=== PATIENT | male | born 1970 | race Two or more races ===

== ENCOUNTER 2018-10-11 07:28 | Observation (INO) | payer OTHER ==
--- NOTE | 2018-10-11 07:35 | PDOC ---
Attending Attestation - Resident Resident Name: Marie Tinoco - ED Attending Attestation I have performed the following: I have examined & evaluated the patient, The case was reviewed & discussed with the resident, I agree w/resident's findings & plan, Exceptions are as noted - HPI HPI: 10/11/18 09:05 Mr Cheney is a 47 yo M h/o HTN, HLD, NIDDMII who was BIBEMS for chest pain and dizziness. He awoke this morning with sudden onset of sharp, nonradiating, constant left sided chest pain associated with dizziness. Patient reports no alleviating or exacerbating factors with a severity of 5/10. Dizziness began yesterday, he noted difficulty walking and standing due to dizziness No SOB, nausea, vomiting, diaphoresis Patient was given ASA 325mg and Nitro on the field with moderate relief of symptoms. - Physicial Exam PE: 10/11/18 08:27 GENERAL: The patient is in no acute distress. LUNGS: Breath sounds equal, clear to auscultation bilaterally. No wheezes, and no crackles. HEART:Regular rate and rhythm, normal S1 and S2 without murmur, rub or gallop. ABDOMEN: Soft, nontender, normoactive bowel sounds. No guarding, no rebound. No masses palpable. EXTREMITIES: Normal range of motion, no edema. NEUROLOGICAL: Cranial nerves II through XII grossly intact. Normal speech. No focal neurological deficits. MUSCULOSKELETAL: Back non-tender to palpation, no CVA tenderness SKIN: Warm, Dry, normal turgor, no rashes or lesions noted. 10/11/18 09:06 - Medical Decision Making 10/11/18 08:59 EKG - Twelve-lead EKG was performed and reviewed by me. There is normal sinus rhythm with a bradycardic rate. The axis is normal. The intervals are normal. There are no ST or T wave abnormalities. Impression: Normal twelve-lead EKG Laboratory Tests 10/11/18 10/11/18 10/11/18 07:40 07:40 07:40 WBC 5.9 Hgb 10.7 L Hct 35.6 Plt Count 279 INR 0.92 BUN 13 Creatinine 0.8 Creatine Kinase 291 Troponin I 0.03 TSH 1.08 Urine Ketones Urine Blood Urine Nitrite Ur Leukocyte Esterase 10/11/18 08:15 WBC Hgb Hct Plt Count INR BUN Creatinine Creatine Kinase Troponin I TSH Urine Ketones Negative Urine Blood Negative Urine Nitrite Negative Ur Leukocyte Esterase Negative 10/11/18 09:03 HGB noted Pt reports a h/o iron deficiency He has not been compliant with iron supplementation Pt continues to be dizzy Will place on observation to PMD
--- NOTE | 2018-10-11 08:04 | PDOC ---
History of Present Illness - General Chief Complaint: Chest Pain Stated Complaint: CHEST PAIN Time Seen by Provider: 10/11/18 07:36 History Source: Patient Exam Limitations: No Limitations - History of Present Illness Initial Comments: 10/11/18 07:36 Patient is a 47 year old male with a PMHx of HTN, HLD, NIDDMII, Iron Deficiency anemia who was BIBEMS for chest pain and dizziness. According to patient, he woke up this morning with sudden onset of sharp, nonradiating, constant left sided chest pain associated with dizziness. Patient reports no alleviating or exacerbating factors with a severity of 5/10. Denies taking any medications for the pain. Patient denies ever having similar symptoms in the past. According to patient, he started experiencing worsening dizziness yesterday whenever he would walk, stand up, or move his head to the sides but denies any tinnitus, nausea, or the feeling as if the room is spinning. Patient reports he drank a significant amount of alcohol on and the symptoms of dizziness started since then but not as severe as yesterday. Otherwise, patient denies any shortness of breath, palpitations, abdominal pain , headaches, acute vision changes, urinary or bowel problems, melena, hematochezia, hematemesis, hemoptysis. Patient was given ASA 325mg and Nitro on the field, as per EMS with moderate relief of symptoms. PCP: Dr. Purvis PMHx: HTN HLD NIDDMII Iron Deficiency anemia PSHx: Denies Social Hx: Denies drug use Denies smoking Alcohol on occasions only Family Hx: Brother- from Heart problems Mother and Father- denies Allergies: Denies Past History - Past Medical History Allergies/Adverse Reactions: Allergies Allergy/AdvReac Type Severity Reaction Status Date / Time No Known Allergies Allergy Verified 10/11/18 07:36 Home Medications: Ambulatory Orders Amlodipine Besylate [Norvasc -] 10 mg PO DAILY 10/11/18 Aspirin 81 mg PO DAILY 10/11/18 Atorvastatin Calcium [Lipitor] 20 mg PO HS 10/11/18 Lisinopril [Prinivil] 20 mg PO DAILY 10/11/18 metFORMIN HCL [Metformin HCl] 500 mg PO DAILY 10/11/18 Review of Systems - Review of Systems Able to Perform ROS?: Yes Constitutional: No: Chills, Diaphoresis, Fever, Malaise, Night Sweats HEENTM: No: Eye Pain, Nose Congestion, Throat Pain Respiratory: No: Cough, Orthopnea, Shortness of Breath, SOB with Exertion, SOB at Rest, Wheezing, Productive cough, Hemoptysis Cardiac (ROS): Yes: Chest Pain, Lightheadedness. No: Edema, Palpitations, Syncope, Chest Tightness ABD/GI: No: Constipated, Diarrhea, Nausea, Rectal Bleeding, Vomiting, Abdominal cramping : No: Burning, Dysuria, Discharge, Frequency, Flank Pain, Hematuria Musculoskeletal: No: Back Pain, Muscle Pain Integumentary: No: Bruising, Dryness, Erythema, Flushing Neurological: Yes: Dizziness. No: Headache, Numbness, Seizure Hematologic/Lymphatic: No: Anemia, Blood Clots *Physical Exam - Vital Signs Last Vital Signs Temp Pulse Resp BP Pulse Ox 98.3 F 74 16 104/86 100 10/11/18 07:36 10/11/18 10:23 10/11/18 10:23 10/11/18 10:23 10/11/18 10:23 - Physical Exam General Appearance: Yes: Other (Awake, alert, oriented x3, in no acute distress ) HEENT: positive: EOMI, SERGIO, Normal ENT Inspection, Normal Voice, Pharynx Normal , Other ((-) nystagmus ). negative: Rhinorrhea, Sinus Tenderness Neck: positive: Trachea midline. negative: Carotid bruit, Decreased range of motion, Lymphadenopathy (R), Lymphadenopathy (L) Respiratory/Chest: positive: Lungs Clear, Normal Breath Sounds. negative: Respiratory Distress, Accessory Muscle Use, Crackles, Rhonchi, Wheezing Cardiovascular: positive: Regular Rhythm, S1, S2, Bradycardia. negative: Edema , JVD, Murmur Gastrointestinal/Abdominal: positive: Other (Soft, nontender, nondistended, normoactive bowel sounds, no organomegaly, no rebound or guarding ) Musculoskeletal: positive: Normal Inspection. negative: CVA Tenderness, CVA Tenderness (R), CVA Tenderness (L) Extremity: positive: Normal Capillary Refill, Normal Inspection, Normal Range of Motion. negative: Calf Tenderness, Erythema Integumentary: positive: Normal Color, Dry, Warm. negative: Erythema, Jaundice , Pale, Clammy, Diaphoresis Neurologic: positive: inside solar sales consultant II-XII NML intact, Fully Oriented, Alert, Normal Mood/ Affect, Normal Response, Motor Strength 5/5. negative: Facial Droop, Numbness, Confused Heart Score/ECG Review - History History: Moderately suspicious - Electrocardiogram EKG: Normal - Age Age: 45-65 - Risk Factors Risk Factors Heart Score: Yes Hx Hypercholesterolemia, Yes Hx Hypertension, Yes Hx Diabetes, Yes Positive family hx of cardiac disease Based on the list above the patient has:: >/=3 risk factors or Hx atherosclerotic disease - Troponin Troponin: </= normal limit - Score Heart Score - Total: 4 Moderate Sedation - Procedure Monitoring Vital Signs: Procedure Monitoring Vital Signs Temperature 98.3 F 10/11/18 07:36 Pulse Rate 74 10/11/18 10:23 Respiratory Rate 16 10/11/18 10:23 Blood Pressure 104/86 10/11/18 10:23 O2 Sat by Pulse Oximetry (%) 100 10/11/18 10:23 ED Treatment Course - LABORATORY CBC & Chemistry Diagram: 10/11/18 07:40 10/11/18 07:40 - ADDITIONAL ORDERS Additional order review: Laboratory Results 10/11/18 10/11/18 10/11/18 08:15 07:40 07:40 PT with INR 10.90 INR 0.92 Sodium 139 Potassium 4.0 Chloride 108 H Carbon Dioxide 26 Anion Gap 5 L BUN 13 Creatinine 0.8 Creat Clearance w eGFR > 60 Random Glucose 142 H Calcium 8.8 Magnesium 2.1 Total Bilirubin 0.2 AST 20 ALT 45 Alkaline Phosphatase 157 H Creatine Kinase 291 Creatine Kinase Index 0.4 CK-MB (CK-2) 1.2 Troponin I 0.03 B-Natriuretic Peptide 26.7 Total Protein 7.7 Albumin 4.0 TSH 1.08 Urine Color Ltyellow Urine Appearance Clear Urine pH 6.0 Ur Specific [place] 1.018 Urine Protein Negative Urine Glucose (UA) 1+ H Urine Ketones Negative Urine Blood Negative Urine Nitrite Negative Urine Bilirubin Negative Urine Urobilinogen Negative Ur Leukocyte Esterase Negative 10/11/18 07:40 RBC 4.96 MCV 71.7 L MCHC 30.1 L RDW 16.9 H MPV 8.8 Neutrophils % 40.1 L Lymphocytes % 46.8 H Monocytes % 8.5 Eosinophils % 3.3 Basophils % 1.3 - Medications Given in the ED: ED Medications Discontinued Medications Generic Name Dose Route Start Last Admin Trade Name Freq PRN Reason Stop Dose Admin Amlodipine Besylate 5 mg 10/11/18 10:00 10/11/18 10:27 Norvasc - PO 5 mg DAILY ESVIN Administration Diazepam 5 mg 10/11/18 10:26 10/11/18 11:00 Valium - PO 10/11/18 10:27 5 mg ONCE ONE Administration Lisinopril 10 mg 10/11/18 10:00 10/11/18 10:28 Prinivil PO 10 mg DAILY ESVIN Administration Meclizine HCl 25 mg 10/11/18 08:29 10/11/18 08:42 Antivert - PO 10/11/18 08:30 25 mg ONCE ONE Administration Metformin HCl 850 mg 10/11/18 10:00 10/11/18 11:10 Glucophage - PO 850 mg AM ESVIN Administration Ondansetron HCl 4 mg 10/11/18 10:27 10/11/18 11:01 Zofran - PO 10/11/18 10:28 4 mg ONCE ONE Administration Medical Decision Making - Medical Decision Making 10/11/18 08:12 Patient is a 47 year old male who was BIBEMS for chest pain and dizziness worse. He was found to have bradycardia but unremarkable EKG. Differential Diagnosis includes but not limited to ACS, pleuritis, gastritis, vertigo, hypothyroidism, BPPV -CBC, CMP, CARDIAC PROFILE, TSH -EKG unremarkable, CXR -Orthostats negative -ASA 325mg given on field -Meclizine 25mg PO 10/11/18 09:03 -Labs unremarkable except for hgb 10.7 but patient reports he hasn't been taking his iron pills due to constipation -Trop negative -Will call doctor Yaniv. Likely obs patient for cardiac monitoring and repeat trops. 10/11/18 09:29 -Heart score 4 -Spoke to Dr. Whitmore's SAP BASIS ADMINISTRATOR, Carmenza, and accepted patient for tele obs -Will consult cardiology *DC/Admit/Observation/Transfer Diagnosis at time of Disposition: Dizziness Chest pain Qualifiers: Chest pain type: unspecified Qualified Code(s): R07.9 - Chest pain, unspecified - Discharge Dispostion Decision to Admit order: Yes - Referrals - Patient Instructions - Post Discharge Activity
[2018-10-11 08:11] LABS: BASO % 1.3 % (0-2.0); EOS % 3.3 % (0-4.5); HEMATOCRIT 35.6 % (35.4-49); HEMOGLOBIN 10.7 GM/dL (11.7-16.9); LYMPH % 46.8 % (8-40); MCH 21.5 pg (25.7-33.7); MCHC 30.1 g/dl (32.0-35.9); MEAN CELL VOLUME 71.7 fl (80-96); MEAN PLT VOLUME 8.8 fl (7.5-11.1); MONO % 8.5 % (3.8-10.2); NEUT % 40.1 % (42.8-82.8); PLATELET COUNT 279 K/MM3 (134-434); RBC 4.96 M/mm3 (4.00-5.60); RDW 16.9 % (11.9-15.9); WHITE BLOOD COUNT 5.9 K/mm3 (4.0-10.0)
[2018-10-11 08:22] LABS: INR 0.92 (0.83-1.09); PROTHROMBIN TIME (PATIENT) 10.9 SEC (9.7-13.0)
[2018-10-11] MEDS ORDERED: MECLIZINE HCL 25 MG TABLET (FP) PO ONE (08:29)
[2018-10-11] MEDS ORDERED: MECLIZINE HCL 25 MG TABLET (FP) ONE (08:35)
[2018-10-11 08:37] LABS: URINE APPEARANCE CLEAR; URINE BILIRUBIN NEGATIVE (<2.0 mg/dL); URINE COLOR LTYELLOW; URINE GLUCOSE (UA) 1+ (NEGATIVE); URINE KETONE NEGATIVE (NEGATIVE); URINE LEUK ESTERASE NEGATIVE (NEGATIVE); URINE NITRITE NEGATIVE (NEGATIVE); URINE PROTEIN NEGATIVE (NEGATIVE); URINE UROBILINOGEN NEGATIVE mg/dL (0.2-1.0)
[2018-10-11 08:51] LABS: ALK PHOS 157 U/L (45-117); ANION GAP 5 MMOL/L (8-16); BILIRUBIN,TOTAL 0.2 mg/dL (0.2-1); BLOOD UREA NITROGEN 13 mg/dL (7-18); CALCIUM 8.8 mg/dL (8.5-10.1); CHLORIDE 108 mmol/L (98-107); CO2 26 mmol/L (21-32); CREATININE 0.8 mg/dL (0.55-1.3); GLUCOSE,RANDOM 142 mg/dL (74-106); MAGNESIUM 2.1 mg/dL (1.8-2.4); N-TERMINAL BNP 26.7 pg/ml (5-125); SGOT/AST 20 U/L (15-37); SGPT/ALT 45 U/L (13-61); SODIUM 139 mmol/L (136-145); TOT PROT 7.7 g/dl (6.4-8.2)
[2018-10-11] MEDS ORDERED: NITROGLYCERIN SUBLINGUAL 1/150 0.4 MG TAB SL PRN (09:32)
[2018-10-11] MEDS ORDERED: LISINOPRIL 10 MG TABLET (FP) PO SCH (10:00)
[2018-10-11] MEDS ORDERED: amLODIPine BESYLATE 5 MG TABLET (FP) PO SCH (10:00)
[2018-10-11] MEDS ORDERED: amLODIPine BESYLATE 5 MG TABLET (FP) ONE (10:25)
[2018-10-11] MEDS ORDERED: diazePAM 5 MG TABLET PO ONE (10:26)
[2018-10-11] MEDS ORDERED: LISINOPRIL 5 MG TABLET (FP) ONE (10:26)
[2018-10-11] MEDS ORDERED: ONDANSETRON 4 MG TABLET PO ONE (10:27)
[2018-10-11] MEDS ORDERED: ONDANSETRON *ODT* 4 MG TABLET ONE (10:56)
[2018-10-11] MEDS ORDERED: diazePAM 5 MG TABLET ONE (10:57)
[2018-10-11 12:17] LABS: ANISOCYTOSIS 2+; MACROCYTOSIS 0; PLATELET ESTIMATE NORMAL; TEAR DROP CELLS 2+
--- NOTE | 2018-10-11 12:37 | EKG ---
Test Reason : Blood Pressure : / mmHG Vent. Rate : 053 BPM Atrial Rate : 053 BPM P-R Int : 180 ms QRS Dur : 082 ms QT Int : 464 ms P-R-T Axes : 053 031 007 degrees QTc Int : 435 ms SINUS BRADYCARDIA POSSIBLE LEFT ATRIAL ENLARGEMENT NONSPECIFIC T WAVE ABNORMALITY ABNORMAL ECG NO PREVIOUS ECGS AVAILABLE Confirmed by FRANCA GARCIA MD ([id number]) on 10/11/2018 12:37:06 PM Referred By: Confirmed By:FRANCA GARCIA MD
--- NOTE | 2018-10-11 14:02 | CON.CARD ---
Consult Consult Specialty:: Cardiology Referred by:: Dave Whitmore Reason for Consultation:: Chest pain - History of Present Illness Chief Complaint: Dizzy and chest pain History of Present Illness: 47 year old male with a pmhx of htn, hld, dm, and anemia who presents with dizziness and chest pain. Had been feeling dizzy last couple days which worsened morning of admission. [place] like he was going to fall. Called EMS and than developed left sided chest pain like someone was pressing on his chest. Non radiating. No pnd, orthopnea, or edema. No palpitations. No syncope. +tobacco use Mother and brother cardiac history - History Source History Provided By: Patient, Medical Record - Past Medical History Cardio/Vascular: Yes: HTN, Hyperlipdemia Heme/Onc: Yes: Anemia Endocrine: Yes: Diabetes Mellitus - Alcohol/Substance Use Hx Alcohol Use: No - Smoking History Smoking history: Current every day smoker Have you smoked in the past 12 months: Yes Aproximately how many cigarettes per day: 5 Home Medications - Allergies Allergies/Adverse Reactions: Allergies Allergy/AdvReac Type Severity Reaction Status Date / Time No Known Allergies Allergy Verified 10/11/18 07:36 - Home Medications Home Medications: Ambulatory Orders Amlodipine Besylate [Norvasc -] 10 mg PO DAILY 10/11/18 Aspirin 81 mg PO DAILY 10/11/18 Atorvastatin Calcium [Lipitor] 20 mg PO HS 10/11/18 Lisinopril [Prinivil] 20 mg PO DAILY 10/11/18 metFORMIN HCL [Metformin HCl] 500 mg PO DAILY 10/11/18 Vital Signs: Vital Signs Temperature 98.3 F 10/11/18 07:36 Pulse Rate 74 10/11/18 10:23 Respiratory Rate 16 10/11/18 10:23 Blood Pressure 104/86 10/11/18 10:23 O2 Sat by Pulse Oximetry (%) 100 10/11/18 10:23 Constitutional: Yes: No Distress Respiratory: Yes: CTA Bilaterally Gastrointestinal: Yes: Soft Cardiovascular: Yes: Regular Rate and Rhythm JVD: No Carotid Bruit: No PMI: Non-Displaced Heart Sounds: Yes: S1, S2 Murmur: No: Systolic Murmur Edema: No - Other Data Labs, Other Data: CBC, BMP 10/11/18 07:40 10/11/18 07:40 INR, PTT INR 0.92 (0.83-1.09) 10/11/18 07:40 Troponin, BNP 10/11/18 07:40 Troponin I 0.03 B-Natriuretic Peptide 26.7 Troponin, BNP 10/11/18 07:40 Troponin I 0.03 B-Natriuretic Peptide 26.7 Imaging - Results Chest X-ray: Report Reviewed EKG: Image Reviewed Assessment/Plan 47 year old male with a pmhx of htn, hld, dm, and anemia who presents with dizziness and chest pain. Had been feeling dizzy last couple days which worsened morning of admission. [place] like he was going to fall. Called EMS and than developed left sided chest pain like someone was pressing on his chest. Non radiating. No pnd, orthopnea, or edema. No palpitations. No syncope. +tobacco use Mother and brother cardiac history To note, says went to [facility] last month for chest pain and told heart burn. Dyspnea on exertion. 1) Chest pain and dizziness Admit to tele and monitor HR and rhythm -Trend CE's EKG sinus bradycardia with nonspecific T wave abnormalities Trend EKG -Aspirin/statin No beta dona -Would plan for echocardiogram and if unremarkable and troponins negative than plan for nuclear exercise stress test.
--- NOTE | 2018-10-11 17:11 | HP ---
Admitting History and Physical - Primary Care Physician PCP: Aj Hendrix - Admission Chief Complaint: Chest pain and dizziness History of Present Illness: Patient is a 47 year old male with past medical history of HTN, HLD, DM. Patient states waking up this morning at around 5am and had sharp/pressure like L sided chest pain. Pain is non-radiating and initially 8/10. Patient states he stood up to go use the bathroom and became dizzy and sat back down. Patient then called 911 to be taken to [facility] ED. EKG in ED shows sinus bradycardia, CXR unremarkable, and troponin neg x 2. History Source: Patient Limitations to Obtaining History: No Limitations - Past Medical History Cardiovascular: Yes: HTN, Hyperlipdemia Heme/Onc: Yes: Anemia Endocrine: Yes: Diabetes Mellitus - Smoking History Smoking history: Current every day smoker Have you smoked in the past 12 months: Yes Aproximately how many cigarettes per day: 5 - Alcohol/Substance Use Hx Alcohol Use: No <Carmenza Hollis - Last Filed: 10/11/18 17:06> Home Medications <Carmenza Hollis - Last Filed: 10/11/18 17:06> <Dave Whitmore - Last Filed: 10/11/18 17:30> - Allergies Allergies/Adverse Reactions: Allergies Allergy/AdvReac Type Severity Reaction Status Date / Time No Known Allergies Allergy Verified 10/11/18 07:36 - Home Medications Home Medications: Ambulatory Orders Amlodipine Besylate [Norvasc -] 10 mg PO DAILY 10/11/18 Aspirin 81 mg PO DAILY 10/11/18 Atorvastatin Calcium [Lipitor] 20 mg PO HS 10/11/18 Lisinopril [Prinivil] 20 mg PO DAILY 10/11/18 metFORMIN HCL [Metformin HCl] 500 mg PO DAILY 10/11/18 Review of Systems - Review of Systems Constitutional: reports: No Symptoms Eyes: reports: No Symptoms HENT: reports: No Symptoms Neck: reports: No Symptoms Cardiovascular: reports: Chest Pain, Other (dizziness) Respiratory: reports: No Symptoms Gastrointestinal: reports: No Symptoms Genitourinary: reports: No Symptoms Breasts: reports: No Symptoms Reported Musculoskeletal: reports: No Symptoms Integumentary: reports: No Symptoms Neurological: reports: No Symptoms Endocrine: reports: No Symptoms Hematology/Lymphatic: reports: No Symptoms Psychiatric: reports: No Symptoms <Carmenza Hollis - Last Filed: 10/11/18 17:06> Physical Examination Vital Signs: Vital Signs Temperature 98.3 F 10/11/18 07:36 Pulse Rate 74 10/11/18 10:23 Respiratory Rate 16 10/11/18 10:23 Blood Pressure 104/86 10/11/18 10:23 O2 Sat by Pulse Oximetry (%) 100 10/11/18 10:23 Constitutional: Yes: Well Nourished, No Distress, Calm Eyes: Yes: Conjunctiva Clear HENT: Yes: Normocephalic Neck: Yes: Supple Cardiovascular: Yes: Regular Rate and Rhythm Respiratory: Yes: Regular, CTA Bilaterally Gastrointestinal: Yes: Normal Bowel Sounds, Soft Musculoskeletal: Yes: WNL Extremities: Yes: WNL Edema: No Integumentary: Yes: WNL Neurological: Yes: Alert, Oriented Psychiatric: Yes: Alert, Oriented Labs: CBC, BMP 10/11/18 07:40 10/11/18 07:40 <Carmenza Hollis - Last Filed: 10/11/18 17:06> Vital Signs: Vital Signs Temperature 98.3 F 10/11/18 07:36 Pulse Rate 74 10/11/18 10:23 Respiratory Rate 16 10/11/18 10:23 Blood Pressure 104/86 10/11/18 10:23 O2 Sat by Pulse Oximetry (%) 100 10/11/18 10:23 Labs: CBC, BMP 10/11/18 07:40 10/11/18 07:40 <Dave Whitmore - Last Filed: 10/11/18 17:30> Imaging - Results Chest X-ray: Report Reviewed EKG: Report Reviewed <Carmenza Hollis - Last Filed: 10/11/18 17:06> Problem List - Problems (1) HTN (hypertension) Code(s): I10 - ESSENTIAL (PRIMARY) HYPERTENSION (2) HLD (hyperlipidemia) Code(s): E78.5 - HYPERLIPIDEMIA, UNSPECIFIED (3) Diabetes mellitus Code(s): E11.9 - TYPE 2 DIABETES MELLITUS WITHOUT COMPLICATIONS (4) Chest pain Code(s): R07.9 - CHEST PAIN, UNSPECIFIED Qualifiers: Chest pain type: unspecified Qualified Code(s): R07.9 - Chest pain, unspecified (5) Dizziness Code(s): R42 - DIZZINESS AND GIDDINESS <Carmenza Hollis - Last Filed: 10/11/18 17:06> Assessment/Plan -admit to unit for tele monitoring -repeat EKG in morning -cardiology consult recommendation appreciated -echocardiogram ordered, if echo normal than will proceed with stress test -cont with lisinopril and norvasc -nitro PRN for chest pain -meclizine PRN for dizziness -will hold metformin until echo results reviewed -BGM, ISS O2 via NC PRN, keep O2Sat >90% -low Na/diabetic diet -dvt ppx <Carmenza Hollis - Last Filed: 10/11/18 17:06> i have seen and examined the patient and agree with the above note <Dave Whitmore - Last Filed: 10/11/18 17:30>
[2018-10-11] MEDS: MECLIZINE HCL 12.5 MG TABLET PO PRN (20:16)
[2018-10-11] MEDS: NICOTINE 21 MG/24 HOURS TOPICAL PATCH TD SCH (21:01)
[2018-10-11] MEDS: ATORVASTATIN CA 20 MG TABLET (FP) PO SCH (21:02)
[2018-10-11 22:43] VITALS: BMI 32.8
[2018-10-12] MEDS: INSULIN SLIDING SCALE (NOVOLOG) 1 VIAL SQ SCH ×3 (06:05→17:46)
[2018-10-12 07:44] LABS: HEMATOCRIT 34.6 % (35.4-49); HEMOGLOBIN 10.5 GM/dL (11.7-16.9); MCH 21.5 pg (25.7-33.7); MCHC 30.3 g/dl (32.0-35.9); MEAN CELL VOLUME 70.9 fl (80-96); MEAN PLT VOLUME 8.8 fl (7.5-11.1); PLATELET COUNT 277 K/MM3 (134-434); RBC 4.87 M/mm3 (4.00-5.60); RDW 17.1 % (11.9-15.9); WHITE BLOOD COUNT 6.5 K/mm3 (4.0-10.0)
[2018-10-12 08:35] LABS: ALBUMIN 3.6 g/dl (3.4-5.0); ALK PHOS 106 U/L (45-117); ANION GAP 6 MMOL/L (8-16); BILIRUBIN,TOTAL 0.3 mg/dL (0.2-1); BLOOD UREA NITROGEN 15 mg/dL (7-18); CALCIUM 8.9 mg/dL (8.5-10.1); CHLORIDE 105 mmol/L (98-107); CO2 27 mmol/L (21-32); CREATININE 0.9 mg/dL (0.55-1.3); GLUCOSE,RANDOM 106 mg/dL (74-106); POTASSIUM 4.3 mmol/L (3.5-5.1); SGOT/AST 18 U/L (15-37); SGPT/ALT 41 U/L (13-61); SODIUM 138 mmol/L (136-145); TOT PROT 7.2 g/dl (6.4-8.2)
[2018-10-12] MEDS: MECLIZINE HCL 12.5 MG TABLET PO PRN (10:39)
[2018-10-12] MEDS: NICOTINE 21 MG/24 HOURS TOPICAL PATCH TD SCH (10:39)
[2018-10-12] MEDS: amLODIPine BESYLATE 10 MG TABLET (FP) PO SCH (10:40)
[2018-10-12] MEDS: LISINOPRIL 20 MG TABLET (FP) PO SCH (10:40)
--- NOTE | 2018-10-12 12:36 | EKG ---
Test Reason : Blood Pressure : / mmHG Vent. Rate : 071 BPM Atrial Rate : 071 BPM P-R Int : 166 ms QRS Dur : 096 ms QT Int : 398 ms P-R-T Axes : 060 039 002 degrees QTc Int : 432 ms NORMAL SINUS RHYTHM POSSIBLE LEFT ATRIAL ENLARGEMENT NONSPECIFIC T WAVE ABNORMALITY ABNORMAL ECG WHEN COMPARED WITH ECG OF 11-OCT-2018 07:36, NONSPECIFIC T WAVE ABNORMALITY NO LONGER EVIDENT IN ANTERIOR LEADS Confirmed by MD EMILY, AMBROCIO ([id number]) on 10/12/2018 12:36:11 PM Referred By: Luma FULLER Confirmed By:AMBROCIO DIAZ MD
[2018-10-12] MEDS ORDERED: SODIUM CHLORIDE NASAL SPRAY 44 ML BOTTLE NS PRN (13:57)
--- NOTE | 2018-10-12 13:57 | PN ---
Progress Note, Physician Chief Complaint: PATIENT C/O HEADACHE NO CP/SOB - Current Medication List Current Medications: Active Medications Amlodipine Besylate (Norvasc -) 10 mg PO DAILY COUNTS INCLUDE 234 BEDS AT THE [facility] Last Admin: 10/12/18 10:40 Dose: 10 mg Atorvastatin Calcium (Lipitor -) 20 mg PO HS COUNTS INCLUDE 234 BEDS AT THE [facility] Last Admin: 10/11/18 21:02 Dose: 20 mg Insulin Aspart (Novolog Vial Sliding Scale -) 1 vial SQ TIDAC COUNTS INCLUDE 234 BEDS AT THE [facility]; Protocol Last Admin: 10/12/18 13:19 Dose: Not Given Lisinopril (Prinivil) 20 mg PO DAILY COUNTS INCLUDE 234 BEDS AT THE [facility] Last Admin: 10/12/18 10:40 Dose: 20 mg Meclizine HCl (Antivert -) 12.5 mg PO Q6H PRN PRN Reason: VERTIGO Last Admin: 10/12/18 10:39 Dose: 12.5 mg Nicotine (Nicoderm Patch -) 21 mg TD DAILY COUNTS INCLUDE 234 BEDS AT THE [facility] Last Admin: 10/12/18 10:39 Dose: 21 mg Nitroglycerin (Nitrostat -) 0.4 mg SL Q5M PRN PRN Reason: FOR CHEST PAIN - Objective Vital Signs: Vital Signs Temperature 98.1 F 10/12/18 05:00 Pulse Rate 78 10/12/18 08:24 Respiratory Rate 18 10/12/18 08:24 Blood Pressure 128/80 10/12/18 08:24 O2 Sat by Pulse Oximetry (%) 99 10/12/18 02:00 Constitutional: Yes: Mild Distress Eyes: Yes: WNL HENT: Yes: WNL Neck: Yes: WNL Cardiovascular: Yes: WNL Respiratory: Yes: WNL Gastrointestinal: Yes: WNL Genitourinary: Yes: WNL Musculoskeletal: Yes: WNL Extremities: Yes: WNL Edema: No Peripheral Pulses WNL: Yes Integumentary: Yes: WNL Wound/Incision: Yes: Clean/Dry Neurological: Yes: WNL ...Motor Strength: WNL Psychiatric: Yes: WNL Labs: CBC, BMP 10/12/18 06:53 10/12/18 06:53 INR, PTT INR 0.92 (0.83-1.09) 10/11/18 07:40 Problem List - Problems (1) Chest pain Code(s): R07.9 - CHEST PAIN, UNSPECIFIED Qualifiers: Chest pain type: unspecified Qualified Code(s): R07.9 - Chest pain, unspecified (2) Diabetes mellitus Code(s): E11.9 - TYPE 2 DIABETES MELLITUS WITHOUT COMPLICATIONS (3) Dizziness Code(s): R42 - DIZZINESS AND GIDDINESS (4) HLD (hyperlipidemia) Code(s): E78.5 - HYPERLIPIDEMIA, UNSPECIFIED (5) HTN (hypertension) Code(s): I10 - ESSENTIAL (PRIMARY) HYPERTENSION Assessment/Plan CARDIAC WORKUP ON TELE NO ALARMS ORDERING CT HEAD STAT LIKELY SINUS/CONGESTION HOWEVER B/C OF RISK FACTORS WILL R/O CVA WITH URGENT CT HEAD PAIN CONTROL CARDIOLOGY EVAL
[2018-10-12] MEDS ORDERED: PT OWN MED DRAWER 7, Y5N ONE (17:00)
[2018-10-12] MEDS ORDERED: INSULIN (NOVOLOG) ASPART 100 UNITS/ML 10ML VIAL ONE (17:06)
[2018-10-12] MEDS: LORATADINE 10 MG TABLET PO SCH (17:46)
[2018-10-12] MEDS: FLUTICASONE PROP 0.05% 16 GM NASAL SPRAY NS SCH ×2 (17:46→21:21)
[2018-10-12] MEDS ORDERED: ACETAMINOPHEN 325 MG TABLET (FP) PO PRN (18:54)
[2018-10-12] MEDS: ATORVASTATIN CA 20 MG TABLET (FP) PO SCH (21:20)
[2018-10-12] MEDS ORDERED: ASPIRIN 81 MG CHEWABLE TABLETS PO ONE (22:00)
[2018-10-13] MEDS: INSULIN SLIDING SCALE (NOVOLOG) 1 VIAL SQ SCH ×2 (06:45→11:12)
[2018-10-13] MEDS: amLODIPine BESYLATE 10 MG TABLET (FP) PO SCH (10:11)
[2018-10-13] MEDS: LISINOPRIL 20 MG TABLET (FP) PO SCH (10:11)
[2018-10-13] MEDS: LORATADINE 10 MG TABLET PO SCH (10:11)
[2018-10-13] MEDS: NICOTINE 21 MG/24 HOURS TOPICAL PATCH TD SCH (10:11)
[2018-10-13] MEDS: FLUTICASONE PROP 0.05% 16 GM NASAL SPRAY NS SCH (10:13)
[2018-10-13 11:44] VITALS: BP 120/70; PULSE 73; TEMP 98
[2018-10-13 12:32] LABS: CHOLESTEROL 119 mg/dL (50-200); HDL CHOLESTEROL 34 mg/dL (40-60); TRIGLYCERIDES 80 mg/dL (0-150)
--- NOTE | 2018-10-13 13:26 | DS ---
Physical Examination Vital Signs: Vital Signs Temperature 98.0 F 10/13/18 10:00 Pulse Rate 73 10/13/18 10:00 Respiratory Rate 20 10/13/18 10:00 Blood Pressure 120/70 10/13/18 10:00 O2 Sat by Pulse Oximetry (%) 98 10/13/18 08:21 Findings/Remarks: BETTER TODAY DENIES CP/SOB OR HEADACE. CT HEAD NORMAL. Constitutional: Yes: No Distress Eyes: Yes: WNL HENT: Yes: WNL Neck: Yes: WNL Cardiovascular: Yes: WNL Respiratory: Yes: WNL Gastrointestinal: Yes: WNL Renal/: Yes: WNL Musculoskeletal: Yes: WNL Extremities: Yes: WNL Edema: No Peripheral Pulses WNL: Yes Integumentary: Yes: WNL Wound/Incision: Yes: Clean/Dry Neurological: Yes: WNL ...Motor Strength: WNL Psychiatric: Yes: WNL Labs: CBC, BMP 10/12/18 06:53 10/12/18 06:53 Discharge Summary Reason For Visit: DIZZINESS,CHEST PAIN Current Active Problems Chest pain (Acute) Diabetes mellitus (Acute) Dizziness (Acute) HLD (hyperlipidemia) (Acute) HTN (hypertension) (Acute) Procedures: Principal: CT HEAD Hospital Course: CHEST PAIN HEADACE SYMPTOMS RESOLVED, NO ALARMS ON TELE, CT HEAD NORMAL, RESPONDED TO CLARITON/FLONASE/NASAL SPRAY AND HEADACHE LIKELY RHINITIS/SINUS RELATED. CARDIOLOGY CLEARANCE F/U OUTPATIENT. Condition: Improved - Instructions Diet, Activity, Other Instructions: SEE YOUR DOCTOR IN 1-2 DAYS Referrals: Simeon Purvis MD [Primary Care Provider] - Disposition: HOME - Home Medications Comprehensive Discharge Medication List: Ambulatory Orders Amlodipine Besylate [Norvasc -] 10 mg PO DAILY 10/11/18 Aspirin 81 mg PO DAILY 10/11/18 Atorvastatin Calcium [Lipitor] 20 mg PO HS 10/11/18 Lisinopril [Prinivil] 20 mg PO DAILY 10/11/18 metFORMIN HCL [Metformin HCl] 500 mg PO DAILY 10/11/18 Acetaminophen [Tylenol .Regular Strength -] 650 mg PO Q6H PRN tablet 10/13/18 Atorvastatin Ca [Lipitor] 20 mg PO HS tablet 10/13/18 Fluticasone Prop 0.05% Nasal [Flonase -] 1 spray NS BID #1 spray 10/13/18 Loratadine [Claritin -] 10 mg PO DAILY #30 tablet 10/13/18 Meclizine HCl [Antivert -] 12.5 mg PO Q6H PRN #30 tablet 10/13/18 Nicotine Patch [Nicoderm Patch -] 21 mg TD DAILY #30 patch 10/13/18 Nitroglycerin Sublingual [Nitrostat -] 0.4 mg SL Q5M PRN #90 tab 10/13/18 Sodium Chloride Nasal [place] [Cyrus [place] Nasal [place] -] 2 spray NS TID PRN #1 spray 10/13/18
== END 2018-10-13 13:50 | disposition home or self-care (01) ==
LOC: JER 07:28 → SUPCPDRO 07:28 → JERBED 09:30 → J4W 20:06
PROVIDERS: ADMIT Family Medicine; ATTEND Family Medicine
DX: R07.9 Chest pain, unspecified (principal); R42 Dizziness and giddiness; R00.1 Bradycardia, unspecified; I10 Essential (primary) hypertension; E78.5 Hyperlipidemia, unspecified; E11.9 Type 2 diabetes mellitus without complications; D50.9 Iron deficiency anemia, unspecified; Z79.82 Long term (current) use of aspirin; Z79.84 Long term (current) use of oral hypoglycemic drugs; Z79.4 Long term (current) use of insulin
CPT/HCPCS: 36415; 70450-TC; 71045-TC-FY; 80053; 80061; 81003; 82550; 82553; 82962; 83036; 83721; 83735; 83880; 84443; 84484; 85025; 85027; 85610; 93005; 93010; 99285-25; G0378

== ENCOUNTER 2018-12-18 18:57 | Observation (INO) | payer OTHER ==
[2018-12-18 19:59] LABS: BASO % 1.1 % (0-2.0); EOS % 4.5 % (0-4.5); HEMATOCRIT 37.6 % (35.4-49); HEMOGLOBIN 12.2 GM/dL (11.7-16.9); LYMPH % 41.2 % (8-40); MCH 24.5 pg (25.7-33.7); MCHC 32.5 g/dl (32.0-35.9); MEAN CELL VOLUME 75.5 fl (80-96); MEAN PLT VOLUME 9.7 fl (7.5-11.1); MONO % 7.9 % (3.8-10.2); NEUT % 45.3 % (42.8-82.8); PLATELET COUNT 210 K/MM3 (134-434); RBC 4.98 M/mm3 (4.00-5.60); RDW 20.7 % (11.9-15.9); WHITE BLOOD COUNT 6.2 K/mm3 (4.0-10.0)
[2018-12-18 20:18] LABS: INR 0.99 (0.83-1.09); PROTHROMBIN TIME (PATIENT) 11.7 SEC (9.7-13.0)
--- NOTE | 2018-12-18 20:20 | PDOC ---
Attending Attestation - HPI HPI: 12/18/18 21:20 Patient is a 48 year old male with a significant past medical history of HTN, HLD, DM, and Anemia, who presents to the ED with complaints of chest pain that began yesterday afternoon. Patient reports chest pain is a non radiating pain that is 5/10 intensity while at rest and does not increase with deep inspiration. He reports experiencing a similar episode of chest pain last year but states he did not up with a vice president safety. Denies chest pain, Sob. Denies nausea, vomiting. Denies fevers, chills. Denies contact with sick individuals, out of state travelling. Denies dysuria, hematuria. Denies diarrhea, constipation. Denies any other symptoms. Allergies: None Social history: Current smoker. No alcohol. No illicit drugs. Surgical history: None PMD: Dr. Hendrix - Physicial Exam PE: 12/18/18 21:20 Agree with residents Physical Exam. <Zak Payton - Last Filed: 12/18/18 21:20> - Resident Resident Name: Tracey Benson - ED Attending Attestation I have performed the following: I have examined & evaluated the patient, The case was reviewed & discussed with the resident, I agree w/resident's findings & plan - Medical Decision Making 12/18/18 21:20 48-year-old male with history of hypertension and diabetes as well as multiple family member history of early-onset coronary artery disease with chest pain EKG chest x-ray troponin Due to multiple risk factors patient will be held for observation <Sharron Smith - Last Filed: 12/18/18 21:21>
[2018-12-18 20:21] LABS: ACTIVATED PTT 32.7 SECONDS (25.2-36.5)
--- NOTE | 2018-12-18 20:29 | PDOC ---
History of Present Illness - General Chief Complaint: Chest Pain Stated Complaint: CHEST PAIN Time Seen by Provider: 12/18/18 20:04 History Source: Patient Exam Limitations: No Limitations - History of Present Illness Initial Comments: 12/18/18 20:24 Pt is a 48yo F with PMH of NIDDM, HTN, HLD, CHELSEA, Vertigo presenting to ED with complaints of chest pain that started yesterday. Pt states pain is is substernal and left sided, intermittent, experienced at rest and with exertion. He states taking ASA relieves the pain. He has had similar pains in the past but it was not left sided before. He denies SOB, cough, palpitations, pleuritic pain, syncope, leg swelling, recent travel, recent surgeries, n/v/d, abdominal pain, urinary symptoms. He states his brother of CHF in his 40s and mother of cardiac issues. He was given four 81mg ASA by EMS prior to arrival which alleviated the pain. He does not have a zinc plater PMD: Simeon PMH: see hpi PSH: none Meds: metformin, atorvastatin, lisinopril, amlodipine, ASA 81mg Allergies: nkda Social: smokes 5 cigarettes/day x20y 12/18/18 20:38 Past History - Past Medical History Allergies/Adverse Reactions: Allergies Allergy/AdvReac Type Severity Reaction Status Date / Time No Known Allergies Allergy Verified 12/18/18 19:14 Home Medications: Ambulatory Orders Amlodipine Besylate [Norvasc -] 10 mg PO DAILY 10/11/18 Aspirin 81 mg PO DAILY 10/11/18 Atorvastatin Calcium [Lipitor] 20 mg PO HS 10/11/18 Lisinopril [Prinivil] 20 mg PO DAILY 10/11/18 metFORMIN HCL [Metformin HCl] 500 mg PO DAILY 10/11/18 Acetaminophen [Tylenol .Regular Strength -] 650 mg PO Q6H PRN tablet 10/13/18 Atorvastatin Ca [Lipitor] 20 mg PO HS tablet 10/13/18 Fluticasone Prop 0.05% Nasal [Flonase -] 1 spray NS BID #1 spray 10/13/18 Loratadine [Claritin -] 10 mg PO DAILY #30 tablet 10/13/18 Meclizine HCl [Antivert -] 12.5 mg PO Q6H PRN #30 tablet 10/13/18 Nicotine Patch [Nicoderm Patch -] 21 mg TD DAILY #30 patch 10/13/18 Nitroglycerin Sublingual [Nitrostat -] 0.4 mg SL Q5M PRN #90 tab 10/13/18 Sodium Chloride Nasal [place] [[place] Nasal [place] -] 2 spray NS TID PRN #1 spray 10/13/18 Anemia: Yes COPD: No Diabetes: Yes HTN: Yes Hypercholesterolemia: Yes - Suicide/Smoking/Psychosocial Hx Smoking History: Never smoked Have you smoked in the past 12 months: No Number of Cigarettes Smoked Daily: 10 Information on smoking cessation initiated: No 'Breaking Loose' booklet given: 10/11/18 Hx Alcohol Use: No Drug/Substance Use Hx: No Substance Use Type: None Hx Substance Use Treatment: No Review of Systems - Review of Systems Constitutional: No: Chills, Fever, Weakness HEENTM: No: Symptoms Reported Respiratory: No: Cough, Shortness of Breath Cardiac (ROS): Yes: See HPI, Chest Pain. No: Lightheadedness, Palpitations, Syncope ABD/GI: No: Diarrhea, Nausea, Vomiting, Abdominal cramping : No: Symptoms Reported Musculoskeletal: No: Back Pain, Muscle Pain, Neck Pain Integumentary: No: Symptoms Reported Neurological: No: Headache, Numbness, Tingling, Tremors, Weakness *Physical Exam - Vital Signs Last Vital Signs Temp Pulse Resp BP Pulse Ox 97.6 F 92 H 20 141/78 99 12/18/18 19:00 12/18/18 19:00 12/18/18 19:00 12/18/18 19:00 12/18/18 19:00 - Physical Exam General Appearance: Yes: Nourished, Appropriately Dressed. No: Apparent Distress HEENT: positive: EOMI, SERGIO Neck: positive: Trachea midline, Supple. negative: Carotid bruit, Lymphadenopathy (R), Lymphadenopathy (L) Respiratory/Chest: positive: Lungs Clear, Normal Breath Sounds. negative: Crackles, Rales, Rhonchi, Stridor, Wheezing Cardiovascular: positive: Regular Rhythm, Regular Rate, S1, S2. negative: Edema , JVD, Murmur Vascular Pulses: Carotid (R): 2+, Carotid (L): 2+, Dorsalis-Pedis (R): 2+, Doralis-Pedis (L): 2+ Gastrointestinal/Abdominal: positive: Normal Bowel Sounds, Soft. negative: Distended, Guarding, Rebound, Tenderness Musculoskeletal: negative: CVA Tenderness Extremity: positive: Normal Capillary Refill. negative: Pedal Edema, Swelling, Calf Tenderness Integumentary: positive: Normal Color, Dry, Warm Neurologic: positive: compo caster II-XII NML intact, Fully Oriented, Alert, Normal Mood/ Affect, Normal Response, Motor Strength 5/5 Moderate Sedation - Procedure Monitoring Vital Signs: Procedure Monitoring Vital Signs Temperature 97.6 F 12/18/18 19:00 Pulse Rate 92 H 12/18/18 19:00 Respiratory Rate 20 12/18/18 19:00 Blood Pressure 141/78 12/18/18 19:00 O2 Sat by Pulse Oximetry (%) 99 12/18/18 19:00 Heart Score/ECG Review - History History: Moderately suspicious - Electrocardiogram EKG: Non specific repolarization disturbance - Age Age: 45-65 - Risk Factors Risk Factors Heart Score: Yes Hx Hypercholesterolemia, Yes Hx Hypertension, Yes Hx Diabetes, Yes Smoking History, Yes Positive family hx of cardiac disease Based on the list above the patient has:: >/=3 risk factors or Hx atherosclerotic disease - Troponin Troponin: </= normal limit - Score Heart Score - Total: 5 ED Treatment Course - LABORATORY CBC & Chemistry Diagram: 12/18/18 19:50 12/18/18 19:50 - ADDITIONAL ORDERS Additional order review: Laboratory Results 12/18/18 19:50 PT with INR 11.70 INR 0.99 PTT (Actin FS) 32.7 12/18/18 19:50 RBC 4.98 MCV 75.5 L MCHC 32.5 RDW 20.7 H MPV 9.7 D Neutrophils % 45.3 Lymphocytes % 41.2 H Monocytes % 7.9 Eosinophils % 4.5 Basophils % 1.1 Medical Decision Making - Medical Decision Making 12/18/18 20:27 Pt is a 48yo F with PMH of NIDDM, HTN, HLD, Vertigo presenting to ED with complaints of chest pain that started yesterday. Pt states pain is is substernal and left sided, intermittent, experienced at rest and with exertion. He states taking ASA relieves the pain. He has had similar pains in the past but it was not left sided before. He denies SOB, cough, palpitations, pleuritic pain, syncope, n/v/d, abdominal pain, urinary symptoms. He states his brother of CHF in his 40s and mother of cardiac issues. He was given four 81mg ASA by EMS prior to arrival which alleviated the pain. He does not have a zinc plater Vitals: wnl PE: wnl Ddx includes but not limited to: ACS, Dissection, PE, PNA, PTX, GERD -cbc, cmp, cardiac profile, coags -ekg, cxr -Pt not in active pain at this time, ASA given by EMS 12/18/18 22:06 EKG compared to prior shows T wave flattening in II, III and V1 CXR appears unremarkable Labs wnl. Trop negative. HEART score 5. Will admit to tele/obs *DC/Admit/Observation/Transfer Diagnosis at time of Disposition: Chest pain Qualifiers: Chest pain type: unspecified Qualified Code(s): R07.9 - Chest pain, unspecified - Discharge Dispostion Decision to Admit order: Yes - Referrals - Patient Instructions - Post Discharge Activity
[2018-12-18 21:26] LABS: ALBUMIN 4.1 g/dl (3.4-5.0); ALK PHOS 119 U/L (45-117); ANION GAP 6 MMOL/L (8-16); BILIRUBIN,TOTAL < 0.1 mg/dL (0.2-1); BLOOD UREA NITROGEN 12 mg/dL (7-18); CALCIUM 9.5 mg/dL (8.5-10.1); CHLORIDE 108 mmol/L (98-107); CO2 27 mmol/L (21-32); CREATININE 0.9 mg/dL (0.55-1.3); GLUCOSE,RANDOM 146 mg/dL (74-106); POTASSIUM 3.9 mmol/L (3.5-5.1); SGOT/AST 22 U/L (15-37); SGPT/ALT 60 U/L (13-61); SODIUM 140 mmol/L (136-145); TOT PROT 7.7 g/dl (6.4-8.2)
--- NOTE | 2018-12-18 23:14 | HP ---
CHIEF COMPLAINT: chest pain PCP:Simeon HISTORY OF PRESENT ILLNESS: 48yo man c/o left sided sharp chest pain which started December 17 in the afternoon. No radiation, unrelated to exertion, reported that it subsided after EMS gave him aspirin. Patient denied having cardiac stress test performed. No recent heavy lifting. He reports recent life stressors- deaths of several family members. ER course was notable for: (1) ekg (2) cxr (3) Recent Travel: no PAST MEDICAL HISTORY: DM, HTN, HLD, CHELSEA, Vertigo PAST SURGICAL HISTORY:no Social History: Smoking:smokes 5 cigarettes/day x20y Alcohol:no Drugs: no Family History: mother with esrd, brother of CHF in his 40s Allergies No Known Allergies Allergy (Verified 12/18/18 19:14) HOME MEDICATIONS: Home Medications Medication Instructions Recorded Amlodipine Besylate [Norvasc -] 10 mg PO DAILY 10/11/18 Aspirin 81 mg PO DAILY 10/11/18 Atorvastatin Calcium [Lipitor] 20 mg PO HS 10/11/18 Lisinopril [Prinivil] 20 mg PO DAILY 10/11/18 metFORMIN HCL [Metformin HCl] 500 mg PO DAILY 10/11/18 Acetaminophen [Tylenol .Regular 650 mg PO Q6H PRN tablet 10/13/18 Strength -] Atorvastatin Ca [Lipitor] 20 mg PO HS tablet 10/13/18 Fluticasone Prop 0.05% Nasal 1 spray NS BID #1 spray 10/13/18 [Flonase -] Loratadine [Claritin -] 10 mg PO DAILY #30 tablet 10/13/18 Meclizine HCl [Antivert -] 12.5 mg PO Q6H PRN #30 tablet 10/13/18 Nicotine Patch [Nicoderm Patch -] 21 mg TD DAILY #30 patch 10/13/18 Nitroglycerin Sublingual 0.4 mg SL Q5M PRN #90 tab 10/13/18 [Nitrostat -] Sodium Chloride Nasal [place] [[place] 2 spray NS TID PRN #1 spray 10/13/18 [place] Nasal [place] -] REVIEW OF SYSTEMS CONSTITUTIONAL: Absent: fever, chills, diaphoresis, generalized weakness, malaise, loss of appetite, weight change HEENT: Absent: rhinorrhea, nasal congestion, throat pain, throat swelling, difficulty swallowing, mouth swelling, ear pain, eye pain, visual changes CARDIOVASCULAR: Absent: chest pain, syncope, palpitations, irregular heart rate, lightheadedness , peripheral edema RESPIRATORY: Absent: cough, shortness of breath, dyspnea with exertion, orthopnea, wheezing, stridor, hemoptysis GASTROINTESTINAL: Absent: abdominal pain, abdominal distension, nausea, vomiting, diarrhea, constipation, melena, hematochezia GENITOURINARY: Absent: dysuria, frequency, urgency, hesitancy, hematuria, flank pain, genital pain MUSCULOSKELETAL: Absent: myalgia, arthralgia, joint swelling, back pain, neck pain SKIN: Absent: rash, itching, pallor HEMATOLOGIC/IMMUNOLOGIC: Absent: easy bleeding, easy bruising, lymphadenopathy, frequent infections ENDOCRINE: Absent: unexplained weight gain, unexplained weight loss, heat intolerance, cold intolerance NEUROLOGIC: Absent: headache, focal weakness or paresthesias, dizziness, unsteady gait, seizure, mental status changes, bladder or bowel incontinence PSYCHIATRIC: Absent: anxiety, depression, suicidal or homicidal ideation, hallucinations. PHYSICAL EXAMINATION Vital Signs - 24 hr 12/18/18 19:00 Temperature 97.6 F Pulse Rate 92 H Respiratory 20 Rate Blood Pressure 141/78 O2 Sat by Pulse 99 Oximetry (%) GENERAL: Awake, alert, and fully oriented, in no acute distress. HEAD: Normal with no signs of trauma. EYES: Pupils equal, round and reactive to light, extraocular movements intact, sclera anicteric, conjunctiva clear. No lid lag. EARS, NOSE, THROAT: Ears normal, nares patent, oropharynx clear without exudates. Moist mucous membranes. NECK: Normal range of motion, supple without lymphadenopathy, JVD, or masses. LUNGS: Breath sounds equal, clear to auscultation bilaterally. No wheezes, and no crackles. No accessory muscle use. HEART: Regular rate and rhythm, normal S1 and S2 without murmur, rub or gallop. ABDOMEN: Soft, nontender, not distended, normoactive bowel sounds, no guarding, no rebound, no masses. MUSCULOSKELETAL: Normal range of motion at all joints. No bony deformities or tenderness. No CVA tenderness. UPPER EXTREMITIES: 2+ pulses, warm, well-perfused. No cyanosis. No clubbing. No peripheral edema. LOWER EXTREMITIES: 2+ pulses, warm, well-perfused. No calf tenderness. No peripheral edema. NEUROLOGICAL: Cranial nerves II-XII intact. Normal speech. Normal gait. PSYCHIATRIC: Cooperative. Good eye contact. Appropriate mood and affect. SKIN: Warm, dry, normal turgor, no rashes or lesions noted, normal capillary refill. Laboratory Results - last 24 hr 12/18/18 12/18/18 12/18/18 19:50 19:50 19:50 WBC 6.2 RBC 4.98 Hgb 12.2 Hct 37.6 MCV 75.5 L MCH 24.5 L D MCHC 32.5 RDW 20.7 H Plt Count 210 D MPV 9.7 D Absolute Neuts (auto) 2.8 Neutrophils % 45.3 Lymphocytes % 41.2 H Monocytes % 7.9 Eosinophils % 4.5 Basophils % 1.1 Nucleated RBC % 0 PT with INR 11.70 INR 0.99 PTT (Actin FS) 32.7 Sodium 140 Potassium 3.9 Chloride 108 H Carbon Dioxide 27 Anion Gap 6 L BUN 12 Creatinine 0.9 Creat Clearance w eGFR > 60 Random Glucose 146 H Calcium 9.5 Total Bilirubin < 0.1 L AST 22 ALT 60 Alkaline Phosphatase 119 H Creatine Kinase 261 Creatine Kinase Index 0.4 CK-MB (CK-2) 1.1 Troponin I 0.03 Total Protein 7.7 Albumin 4.1 ekg reviewed - bradycardia, no acute ischemic changes cxr- reviewed ASSESSMENT/PLAN: #Chest pain- acs should be r/o given risk factors such as smoking, DM #Bradycardia -tele/obs -trend troponin -cardiac monitoring -NGL .5 SL prn if chest pain -ASA -statin -no Bblocker due to bradycardia -urine drug screen -echo -cardiology evaluation -smoking cessation -nicotine patch for now -salt restriction -will need cardiac stress test #DM -novolog sliding scale -diabetic diet -send a1c #Vertigo - none at this time -c/w meclizine prn #DVT ppx -SCDs Visit type - Emergency Visit Emergency Visit: Yes ED Registration Date: 12/18/18 Care time: The patient presented to the Emergency Department on the above date and was hospitalized for further evaluation of their emergent condition. - New Patient This patient is new to me today: Yes Date on this admission: 12/18/18 - Critical Care Critical Care patient: No
[2018-12-18] MEDS ORDERED: NITROGLYCERIN SUBLINGUAL 1/150 0.4 MG TAB SL PRN (23:17)
[2018-12-18] MEDS ORDERED: MECLIZINE HCL 12.5 MG TABLET PO PRN (23:17)
[2018-12-19] MEDS: INSULIN SLIDING SCALE (NOVOLOG) 1 VIAL SQ SCH ×2 (06:22→13:11)
[2018-12-19 07:12] LABS: HEMATOCRIT 36.3 % (35.4-49); HEMOGLOBIN 11.6 GM/dL (11.7-16.9); MCHC 31.8 g/dl (32.0-35.9); MEAN CELL VOLUME 75.5 fl (80-96); MEAN PLT VOLUME 9.4 fl (7.5-11.1); PLATELET COUNT 212 K/MM3 (134-434); RBC 4.81 M/mm3 (4.00-5.60); RDW 20.6 % (11.9-15.9); WHITE BLOOD COUNT 5.8 K/mm3 (4.0-10.0)
[2018-12-19 07:46] LABS: CHOLESTEROL 132 mg/dL (50-200); HDL CHOLESTEROL 26 mg/dL (40-60); TRIGLYCERIDES 182 mg/dL (0-150)
[2018-12-19 07:56] LABS: ANION GAP 4 MMOL/L (8-16); BLOOD UREA NITROGEN 14 mg/dL (7-18); CALCIUM 8.9 mg/dL (8.5-10.1); CHLORIDE 109 mmol/L (98-107); CO2 28 mmol/L (21-32); CREATININE 0.9 mg/dL (0.55-1.3); GLUCOSE,RANDOM 132 mg/dL (74-106); SODIUM 141 mmol/L (136-145)
[2018-12-19] MEDS ORDERED: ASPIRIN COATED 81 MG TABLET.EC PO SCH (10:00)
[2018-12-19] MEDS ORDERED: LISINOPRIL 20 MG TABLET (FP) PO SCH (10:00)
[2018-12-19] MEDS ORDERED: amLODIPine BESYLATE 10 MG TABLET (FP) PO SCH (10:00)
[2018-12-19] MEDS ORDERED: NICOTINE 21 MG/24 HOURS TOPICAL PATCH TD SCH (10:00)
[2018-12-19] MEDS ORDERED: ASPIRIN 81 MG CHEWABLE TABLETS ONE (10:03)
[2018-12-19] MEDS ORDERED: amLODIPine BESYLATE 5 MG TABLET (FP) ONE (10:03)
[2018-12-19] MEDS ORDERED: LISINOPRIL 20 MG TABLET (FP) ONE (10:04)
--- NOTE | 2018-12-19 10:50 | EKG ---
Test Reason : Blood Pressure : / mmHG Vent. Rate : 053 BPM Atrial Rate : 053 BPM P-R Int : 182 ms QRS Dur : 108 ms QT Int : 452 ms P-R-T Axes : 048 033 008 degrees QTc Int : 424 ms SINUS BRADYCARDIA POSSIBLE LEFT ATRIAL ENLARGEMENT SEPTAL INFARCT , AGE UNDETERMINED ABNORMAL ECG WHEN COMPARED WITH ECG OF 12-OCT-2018 10:10, SEPTAL INFARCT IS NOW PRESENT NON-SPECIFIC CHANGE IN ST SEGMENT IN LATERAL LEADS NONSPECIFIC T WAVE ABNORMALITY NOW EVIDENT IN ANTERIOR LEADS Confirmed by JEMMA FRANCO MD ([id number]) on 12/19/2018 10:50:09 AM Referred By: Confirmed By:JEMMA FRANCO MD
--- NOTE | 2018-12-19 12:09 | PN ---
Progress Note, Physician Chief Complaint: came in with chest pain CE 3 sets negative echo pending - Current Medication List Current Medications: Active Medications Amlodipine Besylate (Norvasc -) 10 mg PO DAILY [facility] Last Admin: 12/19/18 10:06 Dose: 10 mg Aspirin (Ecotrin -) 81 mg PO DAILY [facility] Last Admin: 12/19/18 10:06 Dose: 81 mg Atorvastatin Calcium (Lipitor -) 30 mg PO HS [facility] Insulin Aspart (Novolog Vial Sliding Scale -) 1 vial SQ ACHS [facility]; Protocol Last Admin: 12/19/18 06:22 Dose: Not Given Lisinopril (Prinivil) 20 mg PO DAILY [facility] Last Admin: 12/19/18 10:06 Dose: 20 mg Meclizine HCl (Antivert -) 12.5 mg PO Q6H PRN PRN Reason: VERTIGO Nicotine (Nicoderm Patch -) 21 mg TD DAILY [facility] Last Admin: 12/19/18 10:34 Dose: 21 mg Nitroglycerin (Nitrostat -) 0.4 mg SL Q5M PRN PRN Reason: FOR CHEST PAIN - Objective Vital Signs: Vital Signs Temperature 98.2 F 12/19/18 10:33 Pulse Rate 57 L 12/19/18 10:33 Respiratory Rate 16 12/19/18 10:33 Blood Pressure 132/77 12/19/18 10:33 O2 Sat by Pulse Oximetry (%) 99 12/19/18 10:33 Constitutional: Yes: Calm Cardiovascular: Yes: Regular Rate and Rhythm, S1, S2 Respiratory: Yes: CTA Bilaterally Gastrointestinal: Yes: Normal Bowel Sounds, Soft Edema: No Neurological: Yes: Alert Labs: CBC, BMP 12/19/18 07:00 12/19/18 06:00 INR, PTT INR 0.99 (0.83-1.09) 12/18/18 19:50 Problem List - Problems (1) Chest pain Assessment/Plan: ce 3 sets negative echo pending will order stress test cardiology eval Code(s): R07.9 - CHEST PAIN, UNSPECIFIED Qualifiers: Chest pain type: unspecified Qualified Code(s): R07.9 - Chest pain, unspecified (2) Diabetes mellitus Assessment/Plan: hba1c noted Code(s): E11.9 - TYPE 2 DIABETES MELLITUS WITHOUT COMPLICATIONS Qualifiers: Diabetes mellitus type: type 2 (3) HLD (hyperlipidemia) Assessment/Plan: lipid profile noted inc tg and low hdl statin adjusted Code(s): E78.5 - HYPERLIPIDEMIA, UNSPECIFIED (4) HTN (hypertension) Assessment/Plan: no av kymberly blocking agents give n low HR Code(s): I10 - ESSENTIAL (PRIMARY) HYPERTENSION
[2018-12-19 13:42] VITALS: BP 140/84; PULSE 56; TEMP 98; BMI 35.4
--- NOTE | 2018-12-19 13:52 | CON.CARD ---
Consult Consult Specialty:: Cardiology Referred by:: Dr. Whitmore Reason for Consultation:: Chest pain - History of Present Illness Chief Complaint: Chest pain History of Present Illness: 48 year old man, smoker with family history of CAD and PMHx of HTN, HLD, DM-II, anemia and chest pain with frequent admission admitted 12/18/2018 with recurrent chest pain. The patient had chest pain one day before admission. Patient reports chest pain is a non radiating pain that is 5/10 intensity while at rest and does not increase with deep inspiration. He reports experiencing a similar episode of chest pain in October and September last year. ECG 12/18/2018 sinus bradycardia, no acute ST-T changes. No evidence of FL. Echocardiogram 12/19/2018: Normal LV size, wall motion and systolic function. LVEF = 55-60%. Normal RV. Normal LA and RA in size. No significant valvular abnormalities. Treadmill nuclear stress test: 9:00 minutes Chay protocol to 88% MPHR. Normal myocardial perfusion and normal LV systolic function. - History Source History Provided By: Patient Limitations to Obtaining History: No Limitations - Past Medical History Cardio/Vascular: Yes: HTN, Hyperlipdemia Endocrine: Yes: Diabetes Mellitus - Alcohol/Substance Use Hx Alcohol Use: No - Smoking History Smoking history: Current every day smoker Have you smoked in the past 12 months: No Aproximately how many cigarettes per day: 5 Home Medications - Allergies Allergies/Adverse Reactions: Allergies Allergy/AdvReac Type Severity Reaction Status Date / Time No Known Allergies Allergy Verified 12/18/18 19:14 - Home Medications Home Medications: Ambulatory Orders Amlodipine Besylate [Norvasc -] 10 mg PO DAILY 10/11/18 Aspirin 81 mg PO DAILY 10/11/18 Atorvastatin Calcium [Lipitor] 20 mg PO HS 10/11/18 Lisinopril [Prinivil] 20 mg PO DAILY 10/11/18 metFORMIN HCL [Metformin HCl] 500 mg PO DAILY 10/11/18 Acetaminophen [Tylenol .Regular Strength -] 650 mg PO Q6H PRN tablet 10/13/18 Atorvastatin Ca [Lipitor] 20 mg PO HS tablet 10/13/18 Fluticasone Prop 0.05% Nasal [Flonase -] 1 spray NS BID #1 spray 10/13/18 Loratadine [Claritin -] 10 mg PO DAILY #30 tablet 10/13/18 Meclizine HCl [Antivert -] 12.5 mg PO Q6H PRN #30 tablet 10/13/18 Nicotine Patch [Nicoderm Patch -] 21 mg TD DAILY #30 patch 10/13/18 Nitroglycerin Sublingual [Nitrostat -] 0.4 mg SL Q5M PRN #90 tab 10/13/18 Sodium Chloride Nasal [place] [[place] Nasal [place] -] 2 spray NS TID PRN #1 spray 10/13/18 Review of Systems - Review of Systems Constitutional: reports: No Symptoms Eyes: reports: No Symptoms HENT: reports: No Symptoms Neck: reports: No Symptoms Cardiovascular: reports: Chest Pain Respiratory: reports: No Symptoms Gastrointestinal: reports: No Symptoms Genitourinary: reports: No Symptoms Breasts: reports: No Symptoms Reported Musculoskeletal: reports: No Symptoms Integumentary: reports: No Symptoms Neurological: reports: No Symptoms Endocrine: reports: No Symptoms Hematology/Lymphatic: reports: No Symptoms Psychiatric: reports: No Symptoms Vital Signs: Vital Signs Temperature 98.0 F 12/19/18 13:23 Pulse Rate 56 L 12/19/18 13:23 Respiratory Rate 20 12/19/18 13:23 Blood Pressure 140/84 12/19/18 13:23 O2 Sat by Pulse Oximetry (%) 96 12/19/18 13:45 General: Well developed. Well nourished. No acute distress. Head: Normocephalic. Atraumatic, Eyes: PERRLA, EOMI. Sclerae anicteric. Conjunctivae clear. Neck: Supple. No JVD. No bruits. Heart: Normal S1, S2: Regular rhythm and rate. No murmur. No gallop or rub. Lungs: Symmetrical air entry. Clear to auscultation. No crackles. No wheezing or rhonchi. Abdomen: Soft. Bowel sound positive. Non tender. No masses. Extremities: No edema. No clubbing or cyanosis. PD 2+, equal bilaterally. Neuro: Intact, no focal findings. AAO X3. - Other Data Labs, Other Data: CBC, BMP 12/19/18 07:00 12/19/18 06:00 INR, PTT INR 0.99 (0.83-1.09) 12/18/18 19:50 Troponin, BNP 12/18/18 12/19/18 12/19/18 19:50 01:05 06:00 Troponin I 0.03 0.02 0.02 Troponin, BNP 12/18/18 12/19/18 12/19/18 19:50 01:05 06:00 Troponin I 0.03 0.02 0.02 Assessment/Plan 48 year old man, smoker with family history of CAD and PMHx of HTN, HLD, DM-II, anemia and chest pain with frequent admission admitted 12/18/2018 with recurrent chest pain. ECG 12/18/2018 sinus bradycardia, no acute ST-T changes. No evidence of FL. Echocardiogram 12/19/2018: Normal LV size, wall motion and systolic function. LVEF = 55-60%. Normal RV. Normal LA and RA in size. No significant valvular abnormalities. Treadmill nuclear stress test: 9:00 minutes Chay protocol to 88% MPHR. Normal myocardial perfusion and normal LV systolic function. 1) Chest pain with normal ECG. Normal LV systolic function and normal treadmill nuclear stress test. Chest pain is likely non-cardiac origin. 2) Cardiac risk modification: Regular medical follow up for BP, cholesterol and diabetic control. The patient can be discharge from cardiac stand point.
--- NOTE | 2018-12-19 15:41 | ECHO ---
Name: LOCO BALTAZAR Exam:Adult Echocardiogram Study Date: 12/19/2018 12:45 PM Age: 48 yrs Reason For Study: CHEST PAIN Height: 69 in Weight: 175 lb BSA: 2.0 m2 MMode/2D Measurements & Calculations IVSd: 1.1 cm Ao root diam: 3.1 cm LVIDd: 5.1 cm LA dimension: 3.7 cm LVIDs: 3.4 cm LVPWd: 0.92 cm EDV(Teich): 125.4 ml LVOT diam: 2.2 cm ESV(Teich): 48.8 ml TAPSE: 1.9 cm RV S Roby: 11.9 cm/sec Doppler Measurements & Calculations MV E max roby: 113.0 cm/sec Ao V2 max: 146.4 cm/sec MV A max roby: 59.7 cm/sec Ao max P.6 mmHg MV E/A: 1.9 Ao V2 mean: 87.1 cm/sec Ao mean P.8 mmHg Ao V2 VTI: 29.1 cm MIKE(I,D): 2.0 cm2 MIKE(V,D): 2.2 cm2 LV V1 max P.7 mmHg SV(LVOT): 58.8 ml LV V1 mean P.3 mmHg LV V1 max: 81.9 cm/sec LV V1 mean: 51.8 cm/sec LV V1 VTI: 15.1 cm TR max roby: 196.7 cm/sec Med Peak E' Roby: 7.3 cm/sec TR max P.7 mmHg Med E/e': 15.5 Lat Peak E' Roby: 13.0 cm/sec Lat E/e': 8.7 Procedure A complete two-dimensional transthoracic echocardiogram was performed (2D, M-mode, Doppler and color flow Doppler). Left Ventricle The left ventricular size, thickness and function are normal. The left ventricular ejection fraction is normal. Ejection Fraction = 55-60%. The left ventricular wall motion is normal. Right Ventricle The right ventricle is normal in size and function. Atria Normal left and right atrial size and function. Mitral Valve There is no mitral regurgitation noted. Tricuspid Valve There is mild tricuspid regurgitation. Right ventricular systolic pressure is normal. Aortic Valve No hemodynamically significant valvular aortic stenosis. No aortic regurgitation is present. Pulmonic Valve There is no pulmonic valvular regurgitation. Great Vessels The aortic root is normal size. Pericardium/Pleura There is no pericardial effusion. Interpretation Summary The left ventricular size, thickness and function are normal The right ventricle is normal in size and function. There is mild tricuspid regurgitation. MD Grant Cruz 12/19/2018 03:41 PM
--- NOTE | 2018-12-19 16:03 | DS ---
Physical Examination Vital Signs: Vital Signs Temperature 98.0 F 12/19/18 13:23 Pulse Rate 56 L 12/19/18 13:23 Respiratory Rate 20 12/19/18 13:23 Blood Pressure 140/84 12/19/18 13:23 O2 Sat by Pulse Oximetry (%) 96 12/19/18 13:45 Constitutional: Yes: Calm Cardiovascular: Yes: Regular Rate and Rhythm, S1, S2 Respiratory: Yes: CTA Bilaterally Gastrointestinal: Yes: Normal Bowel Sounds, Soft Edema: No Neurological: Yes: Alert, Oriented Labs: CBC, BMP 12/19/18 07:00 12/19/18 06:00 Discharge Summary Reason For Visit: CHEST PAIN Current Active Problems Chest pain (Acute) Other Procedures: echo. treadmill stress test normal Hospital Course: CHIEF COMPLAINT: chest pain PCP:Simeon HISTORY OF PRESENT ILLNESS: 48yo man c/o left sided sharp chest pain which started December 17 in the afternoon. No radiation, unrelated to exertion, reported that it subsided after EMS gave him aspirin. Patient denied having cardiac stress test performed. No recent heavy lifting. He reports recent life stressors- deaths of several family members. ER course was notable for: (1) ekg (2) cxr (3) seen by cardiology on telemetry floor CE 3 sets negative Condition: Improved - Instructions Disposition: HOME - Home Medications Comprehensive Discharge Medication List: Ambulatory Orders Amlodipine Besylate [Norvasc -] 10 mg PO DAILY 10/11/18 Aspirin 81 mg PO DAILY 10/11/18 Atorvastatin Calcium [Lipitor] 20 mg PO HS 10/11/18 Lisinopril [Prinivil] 20 mg PO DAILY 10/11/18 metFORMIN HCL [Metformin HCl] 500 mg PO DAILY 10/11/18 Acetaminophen [Tylenol .Regular Strength -] 650 mg PO Q6H PRN tablet 10/13/18 Atorvastatin Ca [Lipitor] 20 mg PO HS tablet 10/13/18 Fluticasone Prop 0.05% Nasal [Flonase -] 1 spray NS BID #1 spray 10/13/18 Loratadine [Claritin -] 10 mg PO DAILY #30 tablet 10/13/18 Meclizine HCl [Antivert -] 12.5 mg PO Q6H PRN #30 tablet 10/13/18 Nicotine Patch [Nicoderm Patch -] 21 mg TD DAILY #30 patch 10/13/18 Nitroglycerin Sublingual [Nitrostat -] 0.4 mg SL Q5M PRN #90 tab 10/13/18 Sodium Chloride Nasal [place] [[place] Nasal [place] -] 2 spray NS TID PRN #1 spray 10/13/18
[2018-12-19] MEDS ORDERED: ATORVASTATIN CA 20 MG TABLET (FP) PO SCH (22:00)
[2018-12-19] MEDS ORDERED: ATORVASTATIN CA 10 MG TABLET (FP) PO SCH (22:00)
== END 2018-12-19 17:41 | disposition home or self-care (01) ==
LOC: JER 18:57 → JERBED 21:45 → J4W 12-19 10:55
PROVIDERS: ADMIT Family Medicine; ATTEND Family Medicine
DX: R07.9 Chest pain, unspecified (principal); R00.1 Bradycardia, unspecified; I10 Essential (primary) hypertension; E78.5 Hyperlipidemia, unspecified; E11.9 Type 2 diabetes mellitus without complications; D50.9 Iron deficiency anemia, unspecified; F17.210 Nicotine dependence, cigarettes, uncomplicated; Z79.82 Long term (current) use of aspirin; Z79.84 Long term (current) use of oral hypoglycemic drugs; Z82.49 Family history of ischemic heart disease and other diseases of the circulatory system
CPT/HCPCS: 36415; 71045-TC-FY; 78452-TC; 80048; 80053; 80061; 82550; 82553; 82962; 83036; 83721; 84484; 85025; 85027; 85610; 85730; 93005; 93010; 93017; 93306-TC; 99283-25; A9502; G0378

== ENCOUNTER 2024-03-24 19:25 | Inpatient (IN) | payer OTHER ==
[2024-03-24 20:01] VITALS: BMI 32.5
[2024-03-24] MEDS ORDERED: BENZOCAINE/MENTHOL (CHLORASEPTIC ) LOZENGE MM PRN (20:32)
[2024-03-24] MEDS ORDERED: NICOTINE POLACRILEX 2 MG LOZENGE BC PRN (20:32)
[2024-03-24] MEDS ORDERED: P-EPHED 60MG/TRIPROLIDI 2.5MG TABLET PO PRN (20:32)
[2024-03-24] MEDS ORDERED: MAG HYDROX/AL HYDROX/SIMETH 30 ML UNIT-DOSE CUP PO PRN (20:32)
[2024-03-24] MEDS ORDERED: IBUPROFEN 400 MG TABLET (FP) PO PRN (20:32)
[2024-03-24] MEDS ORDERED: guaiFENesin 600 MG TABLET.ER (FP) PO PRN (20:32)
[2024-03-24] MEDS ORDERED: LOPERAMIDE HCL 2 MG CAPSULE PO PRN (20:32)
[2024-03-24] MEDS ORDERED: DOCUSATE SODIUM 100 MG CAPSULE (FP) PO PRN (20:32)
[2024-03-24] MEDS ORDERED: IBUPROFEN 600 MG TABLET (FP) PO PRN (20:32)
[2024-03-24] MEDS ORDERED: BENZONATATE 200 MG CAPSULE PO PRN (20:32)
[2024-03-24] MEDS ORDERED: NICOTINE POLACRILEX 2 MG GUM BUC PRN (20:32)
[2024-03-24] MEDS ORDERED: MAGNESIUM HYDROX 2400MG/30ML ORAL SUSPENSION 30 ML CUP PO PRN (20:32)
[2024-03-24] MEDS ORDERED: POLYETHYLENE GLYCOL (HEALTHYLAX) 3350 17 GM PACKET PO PRN (20:32)
[2024-03-24] MEDS ORDERED: MELATONIN 5 MG TABLETS ONE (22:12)
[2024-03-24] MEDS: MELATONIN 5 MG TABLETS PO SCH (22:23)
[2024-03-24] MEDS: THIAMINE 100 MG TABLET PO SCH (22:23)
[2024-03-25] MEDS ORDERED: TUBERCULIN PPD 5 TU/0.1ML SYRINGE (IN PATIENT USE ONLY) ID ONE (09:00)
[2024-03-25] MEDS: PRENATAL VITAMINS W/ FOLIC ACID TABLET (FP) PO SCH (09:10)
[2024-03-25] MEDS: TUBERCULIN PPD 5 TU/0.1ML VIAL ID ONE (09:14)
[2024-03-25] MEDS ORDERED: NITROGLYCERIN SUBLINGUAL 1/150 0.4 MG TAB SL PRN (11:40)
[2024-03-25 11:58] LABS: HEMATOCRIT 29.3 % (35.4-49); MCHC 30.9 g/dl (32.0-35.9); MEAN CELL VOLUME 74.4 fl (80-96); MEAN PLT VOLUME 9.2 fl (7.5-11.1); PLATELET COUNT 249 10^3/uL (134-434); RBC 3.93 M/mm3 (4.00-5.60); RDW 21.2 % (11.9-15.9); WHITE BLOOD COUNT 7.5 K/mm3 (4.0-10.0)
[2024-03-25] MEDS: LISINOPRIL 20 MG TABLET PO SCH (12:25)
[2024-03-25] MEDS: LORATADINE 10 MG TABLET PO SCH (12:25)
[2024-03-25] MEDS: NICOTINE 21 MG/24 HOURS TOPICAL PATCH TD SCH (12:27)
[2024-03-25 12:28] LABS: ALBUMIN 3.4 g/dl (3.4-5.0); CALCIUM 9.3 mg/dL (8.5-10.1)
[2024-03-25 12:30] LABS: BLOOD UREA NITROGEN 11.5 mg/dL (7-18)
[2024-03-25 12:32] LABS: BILIRUBIN,TOTAL 0.3 mg/dL (0.2-1); CREATININE 0.8 mg/dL (0.55-1.3); TOT PROT 6.7 g/dl (6.4-8.2)
[2024-03-25] MEDS: FLUTICASONE PROP 0.05% 16 GM NASAL SPRAY NS SCH (12:46)
[2024-03-25 14:14] LABS: SYPHILIS W/ RPR CONF NON-REACTIVE (NONREACTIVE)
[2024-03-25] MEDS: INSULIN ASPART SLIDING SCALE (NOVOLOG) 1 VIAL SQ SCH (16:34)
[2024-03-25] MEDS: ATORVASTATIN CA 10 MG TABLET (FP) PO SCH (21:05)
[2024-03-26] MEDS: hydrOXYzine PAMOATE 25 MG CAPSULE (FP) PO PRN (06:27)
[2024-03-26] MEDS: ASPIRIN 81 MG CHEWABLE TABLETS PO SCH (09:31)
[2024-03-26] MEDS: amLODIPine BESYLATE 10 MG TABLET (FP) PO SCH (09:33)
[2024-03-26] MEDS ORDERED: INSULIN (NOVOLOG) ASPART 100 UNITS/ML 10ML VIAL ONE (16:33)
[2024-03-26 17:09] LABS: PH,URINE 6.5 (5.0-8.0); URINE APPEARANCE Clear; URINE BILIRUBIN Negative (NEGATIVE); URINE COLOR Yellow; URINE GLUCOSE (UA) 2+ (NEGATIVE); URINE KETONE Negative (NEGATIVE); URINE LEUK ESTERASE Negative (NEGATIVE); URINE NITRITE Negative (NEGATIVE); URINE PROTEIN Negative (NEGATIVE); URINE UROBILINOGEN 0.2 mg/dL (0.2-1.0)
[2024-03-27] MEDS ORDERED: INSULIN (NOVOLOG) ASPART 100 UNITS/ML 10ML VIAL ONE ×2 (06:21→21:33)
[2024-03-28] MEDS ORDERED: INSULIN (NOVOLOG) ASPART 100 UNITS/ML 10ML VIAL ONE (16:50)
[2024-03-28] MEDS: SODIUM CHLORIDE NASAL SPRAY 44 ML BOTTLE NS PRN (21:15)
[2024-03-29] MEDS ORDERED: INSULIN (NOVOLOG) ASPART 100 UNITS/ML 10ML VIAL ONE ×2 (06:06→21:33)
[2024-03-30] MEDS ORDERED: INSULIN (NOVOLOG) ASPART 100 UNITS/ML 10ML VIAL ONE (06:20)
[2024-03-31] MEDS ORDERED: INSULIN (NOVOLOG) ASPART 100 UNITS/ML 10ML VIAL ONE ×2 (06:35→17:48)
[2024-03-31] MEDS: ACAMPROSATE CALCIUM 333 MG TABLET.DR PO SCH (21:20)
[2024-04-01] MEDS ORDERED: INSULIN (NOVOLOG) ASPART 100 UNITS/ML 10ML VIAL ONE ×3 (06:08→18:27)
[2024-04-02] MEDS ORDERED: INSULIN (NOVOLOG) ASPART 100 UNITS/ML 10ML VIAL ONE (06:08)
[2024-04-03] MEDS ORDERED: INSULIN (NOVOLOG) ASPART 100 UNITS/ML 10ML VIAL ONE (16:31)
[2024-04-04] MEDS ORDERED: INSULIN (NOVOLOG) ASPART 100 UNITS/ML 10ML VIAL ONE (06:17)
[2024-04-05] MEDS: ACETAMINOPHEN 325 MG TABLET (FP) PO PRN (11:42)
[2024-04-06] MEDS ORDERED: INSULIN (NOVOLOG) ASPART 100 UNITS/ML 10ML VIAL ONE (06:13)
[2024-04-07] MEDS ORDERED: INSULIN (NOVOLOG) ASPART 100 UNITS/ML 10ML VIAL ONE (06:08)
[2024-04-07 07:16] VITALS: RESP 18; TEMP 98
[2024-04-07 09:15] VITALS: BP 144/84; PULSE 106
== END 2024-04-07 09:44 | disposition home or self-care (01) | DRG 772 ==
LOC: YASAS 19:25 → Y3NR 22:28 → Y3E 03-25 10:47
PROVIDERS: ADMIT Allergy & Immunology; ATTEND Psychiatry & Neurology Pain Medicine
PROC: HZ42ZZZ Group Counseling for Substance Abuse Treatment, Cognitive-Behavioral (ICD-10-PCS; principal; 2024-03-24)
DX: F14.20 Cocaine dependence, uncomplicated (principal); F10.10 Alcohol abuse, uncomplicated; F17.210 Nicotine dependence, cigarettes, uncomplicated; D64.9 Anemia, unspecified; I10 Essential (primary) hypertension; E78.5 Hyperlipidemia, unspecified; E11.9 Type 2 diabetes mellitus without complications; M70.52 Other bursitis of knee, left knee; Z79.84 Long term (current) use of oral hypoglycemic drugs
CPT/HCPCS: 36415; 80053; 80305; 81003; 82962; 85027; 86780; 86803; 87811; 93005; 93010